=== PATIENT | male | born 1955 | race Caucasian/White ===

== ENCOUNTER 2017-08-03 13:38 | Emergency (ER) | payer BC, OTHER ==
[2017-08-03 13:57] VITALS: BP 148/83; PULSE 84; RESP 20; TEMP 98.4
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
== END 2017-08-03 15:39 | disposition home or self-care (01) ==
LOC: EC 13:38
DX: S60.512A Abrasion of left hand, initial encounter (principal); Z79.899 Other long term (current) drug therapy; W20.8XXA Other cause of strike by thrown, projected or falling object, initial encounter; Y93.89 Activity, other specified; Y92.015 Private garage of single-family (private) house as the place of occurrence of the external cause
CPT/HCPCS: 99283

== ENCOUNTER → 2021-03-04 | Outpatient (CLI) | payer MEDICARE, OTHER ==
--- NOTE | 2021-03-05 09:02 | XR ---
EXAMINATION TYPE: XR shoulder limited LT DATE OF EXAM: 03/04/2021 COMPARISON: NONE HISTORY: Pain TECHNIQUE: Three views are submitted. FINDINGS: The osseous structures are intact. There is no acute fracture or dislocation. Well-corticated densit y adjacent to the AC joint with mild hypertrophic changes. Suspect small granuloma left upper lobe. A dditional peripheral nodule left midlung noted. IMPRESSION: 1. Mild AC joint arthropathy. 2. Chest x-ray recommended to assess for pulmonary nodules.
== END | disposition home or self-care (01) ==
LOC: RADXRMAIN 17:01
PROVIDERS: ATTEND Internal Medicine
DX: M12.812 Other specific arthropathies, not elsewhere classified, left shoulder (principal)

== ENCOUNTER → 2021-03-08 | Outpatient (CLI) | payer MEDICARE, OTHER ==
--- NOTE | 2021-03-09 09:28 | CT ---
EXAMINATION TYPE: CT chest wo con DATE OF EXAM: 03/08/2021 COMPARISON: No prior HISTORY: pulmonary nodule CT DLP: 465.30 mGycm. Automated Exposure Control for Dose Reduction was Utilized. TECHNIQUE: CT scan of the thorax is performed without IV contrast. FINDINGS: LUNGS: 5 mm nodule adjacent to the right major fissure seen on the lung reformats image 27. There is a 6 mm nodule in the left lower lobe inferior lateral aspect in on the lung reformats image 46. Bibasilar atelectatic changes demonstrated. The lungs are grossly clear, there is no concerning parenchymal mass. No pleural effusion or pneumothorax. The tracheobronchial tree is patent. MEDIASTINUM: Lack of IV contrast limits evaluation for mediastinal and especially hilar adenopathy. There are no definitive greater than 1 cm hilar or mediastinal lymph nodes. No cardiomegaly or pericardial effusion is seen. Intrathoracic aorta and main pulmonary trunk grossly unremarkable. OTHER: Thyroid gland is not enlarged. There is a hypoattenuating lesion in the left hepatic lobe with mean Hounsfield unit 6.7 measures 2 x 1.5 x 1.7 cm likely representing cysts. There is apparent fullness to the bilateral renal collecting systems. No acute osseous abnormality. Mild degenerative changes seen in the thoracic spine. IMPRESSION: 1. Right fissure-based nodule measuring 5 mm. 2. Left lower lobe solid 6 mm nodule. 3. Hypoattenuating lesion, left hepatic lobe, likely cyst, measures up to 2 cm, attention on follow-u p. 4. Apparent fullness to the bilateral renal collecting system, correlate with renal ultrasound to exc lude hydronephrosis. RECOMMENDATION: 1. Noncontrast CT chest recommended in 6-12 months. Please refer to Fleischner criteria for pulmonary nodule follow-up. 2. Renal ultrasound.
== END | disposition home or self-care (01) ==
LOC: RADCTMAIN 16:28
PROVIDERS: ATTEND Internal Medicine
DX: R91.1 Solitary pulmonary nodule (principal)
CPT/HCPCS: 71250

== ENCOUNTER → 2021-04-19 | Outpatient (CLI) | payer MEDICARE, OTHER ==
[2021-04-19 08:22] LABS: African American GFR (CKD) >90 (>60 ml/min/1.73 sqM); Blood Urea Nitrogen 25 mg/dL (9-20); Non-African American GFR(CKD) 79 (>60 ml/min/1.73 sqM)
--- NOTE | 2021-04-20 09:58 | CT ---
EXAMINATION TYPE: CT urogram wo/w con DATE OF EXAM: 04/19/2021 COMPARISON: Correlation CT 03/08/2021 HISTORY: 65-year-old male unspecified hydronephrosis TECHNIQUE: Contiguous axial scanning of the abdomen and pelvis performed without and with IV Contrast , patient injected with 100 mL of Isovue 300. Delayed images through the kidneys and bladder were obt ained. Coronal/sagittal reconstructions performed. Reconstructions generated on a dedicated [employer] workstation. CT DLP: 2953.4 mGycm Automated exposure control for dose reduction was used. FINDINGS: Heart is normal size without pericardial effusion. Lung bases clear without pleural effusion. There is a small hiatal hernia. Mild hepatomegaly at 18.5 cm. Low-attenuation parenchyma compatible with fatty infiltration. There is a cyst in the left hepatic dome measuring 2.0 cm. Portal venous system is patent. No biliary ductal dilatation. Gallbladder, adrenal glands, spleen, and pancreas within normal limits. Kidneys show no evidence for nephrolithiasis. On delayed kidney images, there is evidence of bilatera l parapelvic cysts measuring up to 3.0 cm rather than hydronephrosis. No suspicious renal mass is seen. No suspicious filling defects within the renal collecting systems. Only a short segment of the distal left ureter remains nonopacified. However, there is no abnormal th ickening here. The remaining bilateral ureters show no gross abnormal body. Small fatty umbilical hernia measuring 1.7 cm wide. No dilated small bowel, free fluid, or free air. No mesenteric or retroperitoneal lymphadenopathy. Mild to moderate stool burden. Proximal to mid sigmoid diverticulosis. No pericolonic inflammatory ch kristal. Bladder partially distended.. Prominent prostatomegaly is 7.1 cm wide with lobular soft tissue impres sing upon to the bladder base, series 9 and axial image 79. Patulous left inguinal canal. Borderline sized 9 mm left external iliac chain lymph node. Pelvic phlebolith. No abnormal fluid collection in t he pelvis. Bones: Mild marginal spurring at the hips. Moderate degenerative disc disease L4-L5. Facet arthropath y mid to lower lumbar spine. Trace grade 1 retrolisthesis L2-L3. IMPRESSION: 1. DELAYED POSTCONTRAST KIDNEY IMAGES CLARIFIES THAT THE BILATERAL RENAL FINDINGS RELATE TO BENIGN PA RAPELVIC CYSTS MEASURING UP TO 3.0 CM RATHER THAN HYDRONEPHROSIS. NO SUSPICIOUS RENAL LESION OR CALCU RYLIE. 2. ONLY THE DISTAL THIRD LEFT URETER REMAINS NONOPACIFIED LIMITING ASSESSMENT. HOWEVER, THERE IS NO A BNORMAL SOFT TISSUE THICKENING HERE. THE REMAINDER OF THE RENAL COLLECTING SYSTEMS AND URETERS APPEAR NORMAL. 3. PRONOUNCED PROSTATOMEGALY AT 7.1 CM WIDE WITH LOBULAR SOFT TISSUE IMPRESSING INTO THE BLADDER BASE . SUSPECT BPH. CORRELATE WITH PATIENT'S SYMPTOMS, PHYSICAL EXAM, AND PSA. 4. INCIDENTAL: MILD HEPATOMEGALY WITH FATTY INFILTRATION. SMALL HIATAL HERNIA, TINY FATTY UMBILICAL H ERNIA, AND PROXIMAL TO MID SIGMOID DIVERTICULOSIS.
== END | disposition home or self-care (01) ==
LOC: RADCTMAIN 07:33
PROVIDERS: ATTEND Urology
DX: N40.0 Benign prostatic hyperplasia without lower urinary tract symptoms (principal); R16.0 Hepatomegaly, not elsewhere classified; N13.30 Unspecified hydronephrosis
CPT/HCPCS: 82565; 84520; 74178; 36415; 74400; Q9967

== ENCOUNTER → 2022-03-07 | Outpatient (CLI) | payer MEDICARE, OTHER ==
--- NOTE | 2022-03-07 10:23 | CT ---
EXAMINATION TYPE: CT chest wo con DATE OF EXAM: 03/07/2022 COMPARISON: 03/08/2021 HISTORY: 66-year-old male R91.1, Pulmonary Nodule TECHNIQUE: Contiguous axial scanning of the chest without IV contrast. Coronal and sagittal reconstru ctions performed. CT DLP: 450.3 mGycm Automated exposure control for dose reduction was used. FINDINGS: Heart upper limits of normal in size. There is trace right basilar pericardial fluid. Stable tiny 7 mm subcutaneous nodule anterior lower right chest, possible sebaceous cyst that can be correlated clinically with physical exam. Aorta normal caliber with conventional arterial vessel branching anatomy. No thoracic lymphadenopathy by CT size criteria. Mild central bronchial wall thickening. This could reflect bronchitis or chronic asthma. Tiny 3 mm subpleural nodule periphery of the right base is unchanged. 6 mm left basilar pulmonary nodule, axial image 47 is also unchanged. Tiny 4 mm right mid lung pulmonary nodule along the fissure on axial image 29 unchanged. Stable scarring at the inferior lingula. 2.0 cm hypodense lesion central left hepatic dome likely a cyst, unchanged from prior. There is a sma ll hiatal hernia and bilateral parapelvic cysts redemonstrated as demonstrated on the 04/19/2021 CT ur ogram. Mild hepatic hypodensity compatible with fatty infiltration. Bones: Mild anterior endplate spondylosis lower thoracic spine. IMPRESSION: 1. STABLE. PULMONARY NODULES MEASURING UP TO 6 MM. CONSIDER AN ADDITIONAL ONE-YEAR FOLLOW-UP TO DOCUM ENT 2 YEARS OF STABILITY. 2. SMALL HIATAL HERNIA AND BILATERAL PARAPELVIC CYSTS IN THE KIDNEYS. MILD FATTY INFILTRATION OF THE LIVER.
== END | disposition home or self-care (01) ==
LOC: RADCTMAIN 06:33
PROVIDERS: ATTEND Internal Medicine
DX: K44.9 Diaphragmatic hernia without obstruction or gangrene (principal); R91.1 Solitary pulmonary nodule
CPT/HCPCS: 71250

== ENCOUNTER 2024-05-02 07:30 | Emergency (ER) | payer MEDICARE ==
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
[2024-05-02] MEDS: DIPH,PERTUS(ACELL)TETVAC-LF 0.5 ML VIAL IM ONE (08:05)
[2024-05-02] MEDS: MORPHINE SULFATE 4 MG/ML SYRINGE IV STA (08:19)
[2024-05-02] MEDS: BACITRACIN OINT 1 EACH PACKET TOPICAL ONE (08:40)
[2024-05-02 09:10] VITALS: BP 152/92; PULSE 58; RESP 18; TEMP 98.2
== END 2024-05-02 09:10 | disposition home or self-care (01) ==
LOC: EC 07:30
DX: T31.10 Burns involving 10-19% of body surface with 0% to 9% third degree burns (principal); T20.20XA Burn of second degree of head, face, and neck, unspecified site, initial encounter; Z91.048 Other nonmedicinal substance allergy status; Z23 Encounter for immunization; X04.XXXA Exposure to ignition of highly flammable material, initial encounter
CPT/HCPCS: 90715; 99283; 90471; 96372; J2270

== ENCOUNTER → 2024-06-02 | Outpatient (CLI) | payer MEDICARE ==
--- NOTE | 2024-06-06 08:15 | US ---
EXAMINATION TYPE: US liver DATE OF EXAM: 06/02/2024 COMPARISON: NONE CLINICAL INDICATION: Male, 68 years old with history of R74.8 ABNORMAL LEVELS OF OTHER SERUM ENZYMES; abnormal labs. TECHNIQUE: Multiple sonographic images of the right upper quadrant are obtained. FINDINGS: EXAM MEASUREMENTS: Liver Length: 14.8 cm Gallbladder Wall: 0.1 cm Right Kidney: 11.2 x 5.8 x 6.2 cm PHLEBOTOMIST ASSOCIATE NOTES:limited due to overlying bowel Pancreas: Obscured by bowel gas Liver: No prominent masses or lesions seen at time of scan Gallbladder: No wall thickening or stones Evidence for sonographic Cabrera's sign: neg CBD: Obscured by overlying bowel gas Right Kidney: Anechoic area seen, possible dilated renal collecting system. Dromedary hump. IMPRESSION: 1. No acute ultrasound abnormality right upper quadrant ultrasound [facility]ar Ta, , 06/06/2024 8:13 AM
== END | disposition home or self-care (01) ==
LOC: RADUSWWP 08:14
PROVIDERS: ATTEND Internal Medicine
DX: R74.8 Abnormal levels of other serum enzymes (principal)
CPT/HCPCS: 76705